=== PATIENT | male | born 1970 | race Caucasian/White ===

== ENCOUNTER → 2017-01-10 | Outpatient (CLI) | payer BC ==
--- NOTE | 2017-01-10 10:35 | DI ---
Indication: [email or web address].[email or web address]: LOW BACK PAIN MRI HIP LEFT W/O CONTRAST: Comparison: None Technique: T1 and T2-weighted imaging sequences provided in axial, coronal and sagittal image planes Findings: Patient showed no acute bony abnormality. The femoral head showed normal sphericity of the femoral head and neck junction. There is no significant fibrocystic changes or marked chondral labral abnormality appreciated. Normal acetabular roof cartilage is identified without significant subchondral bony sclerosis or edema. Small joint effusion is seen. Patient showed a normal appearance of the greater trochanteric bursa and the adjacent musculature. Left side of the true pelvis showed no additional findings. Pubic rami seem normal. Impression: MR imaging of the hip which fails to show significant acute abnormality. .
--- NOTE | 2017-01-10 12:19 | DI ---
Indication: [email or web address].[email or web address]: LEFT HIP PAIN CT PELVIS W/O CONTRAST: Comparison: MRI left hip Technique: Patient scanned from above the iliac crest to below the pubic symphysis without oral or IV contrast material utilizing dose reduction imaging technology.. Reformatted sagittal and coronal images are provided. Findings: Patient showed significant canal narrowing involving the lower lumbar disc spaces. No acute bony abnormality appreciated in the pelvis although there is minimal sclerotic change in the mid left iliac region. No additional significant findings appreciated. The soft tissue evaluation shows moderate volume of stool in the bowel without acute inflammatory change or suggestion of obstruction. Bladder contour is unremarkable. Prostate is demonstrating some calcifications just to the left of the midline. Impression: 1. Overall nonspecific findings other than possible spinal stenosis in the visualized lower lumbar spine. No acute bony findings noted about the pelvis. 2. No soft tissue findings appreciated. .
--- NOTE | 2017-01-10 12:42 | DI ---
Indication: [email or web address].[email or web address]: LOW BACK PAIN CT LUMBAR SPINE W/O CONTRAST: Comparison: Lumbar MRI 11/29/2016 Technique: Patient was scanned without intravenous contrast through the lumbar region utilizing dose reduction imaging techniques with reformatted sagittal and coronal images. Findings: Patient continues to show postoperative changes of posterior spinal fusion and a prostatic disc at the L3-4 levels. No acute vertebral body fractures are identified. Patient showed minimal wedge compression of L1 which was seen on the old study. Axial images T12-L1 disc space showed no abnormality. L1-2 disc space shows mild broad-based bulging with just slight effacement of the overall epidural fat but no marked stenosis or neural foraminal narrowing. L2-3 disc shows moderate broad-based bulging leading to this fairly significant canal narrowing. This is accentuated by thickening of the posterior ligaments and mild hypertrophic change. L3-4 disc shows a prosthetic disc in place. Some associated hypertrophic changes are identified. Canal shows only minimal narrowing due to postoperative change. L4-5 disc space showed significant spinal stenosis due to broad-based disc bulging, thickening of the posterior ligaments and some hypertrophic bony change. Patient also showed bilateral neural foraminal narrowing at this level. L5-S1 disc space shows just mild broad-based bulging which is slightly more neural foraminal narrowing to the right. Canal is mild to moderate narrowed. Impression: 1. Postoperative changes with posterior fusion and and L3-[address] 2. Spinal stenosis at L 2-3 and particularly prominently at L4-5 due to combination of disc bulging, hypertrophic bony changes and thickening in the posterior ligaments. 3. No acute fractures or significant malalignments. .
== END ==
LOC: IMA 08:53
PROVIDERS: ATTEND Neurological Surgery
DX: M48.06 Spinal stenosis, lumbar region (principal); Z98.1 Arthrodesis status; M54.5 Low back pain; M25.552 Pain in left hip

== ENCOUNTER → 2017-03-06 | Outpatient (CLI) | payer BC ==
[~2017-03-06] MED LIST: IOHEXOL 180 MG/ML 20ml INJECTION ONE; LIDOCAINE 1% (10mg/ml) 5ml VIAL ONE; MethylPREDNISolone ACETATE 40mg/1ml ONE
--- NOTE | 2017-03-06 16:21 | DI ---
Indication:[email or web address]: LOW BACK PAIN Procedure:EPIDURAL INJ.SPINE W FLUO CATH LUMBAR EPIDURAL INJECTION: The patient has low back and radicular pain. The patient has had a previous epidural that provided a minimal amount of pain relief. The details of the procedure, including the benefits, risks, and alternatives were explained to the patient. All of their questions were answered. They stated that they understood and wished to proceed. Informed consent was then obtained. A pre-procedural timeout was performed to confirm the correct patient and procedure. Due to the large amount of difficulty reaching epidural space at the L2-3 level during the prior injection, as well as the patient's recent conversation with the referring physician about during the next injection at a lower level, it was decided to perform this injection at the L4-5 level. Utilizing aseptic technique, local lidocaine anesthetic, and fluoroscopic guidance throughout, a 22-gauge spinal needle was directed into the lumbar epidural space via an interlaminar approach at the L4-5 level. Contrast was injected to assure proper positioning of the needle tip. A fluoroscopic image was then taken and archived. Subsequently, 120 mg Depo-Medrol was injected into the epidural space. The patient tolerated the procedure well. IMPRESSION: Successful lumbar epidural steroid injection. Fluoroscopy dose: 61.46 mGy (Cumulative air kerma) Adrian Jesus RPA/DANNY performed this under my personal supervision. .
== END ==
LOC: IMA 14:01
PROVIDERS: ATTEND Neurological Surgery
DX: M54.5 Low back pain (principal)
CPT/HCPCS: 62323